=== PATIENT | male | born 1995 | race African-American/Black ===

== ENCOUNTER 2016-08-27 10:53 | Emergency (ER) | payer BC ==
[~2016-08-27] VITALS: Ht 180.3 cm; Wt 143.0 kg
[2016-08-27 11:26] VITALS: BP 152/89; PULSE 72; RESP 16; TEMP 98.9; O2SAT 99
[2016-08-27] MEDS ORDERED: LIDOCAINE HCL 1% 50 ML VIAL IM ONE (12:15)
[2016-08-27] MEDS ORDERED: AZITHROMYCIN PWD FOR SUSP 1 GM PACKET PO ONE (12:15)
[2016-08-27] MEDS ORDERED: cefTRIAXone 250 MG VIAL IM ONE (12:15)
--- NOTE | 2016-08-27 12:21 | PD ---
HPI Chief Complaint: Complaint Time Seen by Provider: 12:15 Travel History International Travel<30 days: No Contact w/Intl Traveler<30days: No Traveled to known affect area: No History of Present Illness HPI 20-year-old male presents to the emergency room requesting STD testing. Patient states his ex-girlfriend was diagnosed with STD and told him 2 days ago to get checked. Patient states she would not tell him what kind of STD she was diagnosed with but that he should be tested. Patient is completely asymptomatic. He denies dysuria, urgency, frequency, penile discharge, testicular pain, or abdominal pain. States he went to the health department but could not afford $100 co-pay so he came here. PFSH Past Medical History Influenza Vaccination: No Social History Alcohol Use: No Tobacco Use: No Substance Use: Yes (WEED OCCAS) Allergies-Medications (Allergen,Severity, Reaction): Coded Allergies: No Known Allergies (Unverified , 08/27/16) Reported Meds & Prescriptions Reported Meds & Active Scripts Active No Active Prescriptions or Reported Medications Review of Systems Except as stated in HPI: all other systems reviewed are Neg Physical Exam Narrative GENERAL: Well-nourished, well-developed male in no acute distress. Afebrile. Ambulatory. SKIN: Warm and dry. HEAD: Normocephalic. EYES: No scleral icterus. No injection or drainage. NECK: Supple, trachea midline. No JVD or lymphadenopathy. Data Data Last Documented VS Vital Signs Date Time Temp Pulse Resp B/P Pulse Ox O2 Delivery O2 Flow Rate FiO2 08/27/16 11:26 98.9 72 16 152/89 99 Orders Gc And Chlamydia Pcr (08/27/16 12:13) Azithromycin Powd Pack (Zithromax Powd P (08/27/16 12:15) Rocephin 250mg Vial Im X 1 (08/27/16 12:15) Lidocaine 1% Inj (50 Ml) (Xylocaine 1% I (08/27/16 12:15) MDM Medical Decision Making Medical Screen Exam Complete: Yes Emergency Medical Condition: Yes Medical Record Reviewed: Yes Differential Diagnosis STD versus UTI versus dysuria Narrative Course 20-year-old male presents to the emergency room requesting STD testing. Patient is completely asymptomatic but was told recently that his girlfriend is positive and is requesting treatment. He went to the health department and was unable to afford the $100 co-pay. Patient was informed that the emergency room only test and treat for gonorrhea and chlamydia. GC and chlamydia PCR were ordered and pending. Patient treated empirically with Rocephin and azithromycin. Told to follow up with health department for further testing. He understands and agrees to plan. Diagnosis Primary Impression: STD (sexually transmitted disease) Referrals: [facility] Patient Instructions: General Instructions, Sexually Transmitted Diseases (ED) Additional Instructions: Rest and drink plenty of fluids. You have been treated for gonorrhea and chlamydia. Do not have unprotected sex with untreated partner. If your results are positive, a letter will be mailed to your house. Follow-up with the health department for further STD testing. Return to the emergency room for worsening symptoms. Scripts No Active Prescriptions or Reported Meds Disposition: 01 DISCHARGE HOME Condition: Stable Candida Shin Aug 27, 2016 12:21
[2016-08-27 19:25] LABS: CHLAMYDIA PCR NOT DETECTED (NOT DETECT); NEISSERIA PCR NOT DETECTED (NOT DETECT)
== END 2016-08-27 13:34 | disposition home or self-care (01) ==
LOC: PHEFT 10:53
DX: A64 Unspecified sexually transmitted disease (principal)
CPT/HCPCS: 87491; 87591; 96372; 99283; J0696